=== PATIENT | male | born 1960 | race Caucasian/White ===

== ENCOUNTER 2017-07-11 06:49 | Emergency (ER) | payer BC ==
--- NOTE | 2017-07-11 06:53 | EDM.PDOC ---
ED HPI GENERAL MEDICAL PROBLEM - General Chief Complaint: Allergic Reaction Stated Complaint: [id number] ALLERGIC REACTION Time Seen by Provider: 07/11/17 06:52 Source of Information: Reports: Patient, RN, RN Notes Reviewed - History of Present Illness INITIAL COMMENTS - FREE TEXT/NARRATIVE: Pt presents to the ER with c/o developing a red, raised, itchy rash beginning on Saturday evening. He states his only known allergy is sulfa drugs. He states he started some OTC cough medicine on Saturday evening, and that was the last time it was taken. He states he did have shrimp over [place]. He states he began taking benadryl 50mg on Saturday evening and has been taking it morning and night since Saturday. He states this morning his lips began to swell. He denies tongue swelling or trouble breathing. 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: Reports: Other Medication(s) (Benadryl) - Related Data Allergies Allergy/AdvReac Type Severity Reaction Status Date / Time Sulfa (Sulfonamide Allergy Rash Verified 07/11/17 06:57 Antibiotics) Home Meds: Home Meds Lutein 20 mg PO ASDIRECTED 03/11/16 [History] Mirabegron [Myrbetriq] 50 mg PO DAILY 07/11/17 [History] Terazosin [Hytrin] 5 mg PO BEDTIME 07/11/17 [History] Past Medical History - Past Health History Medical/Surgical History: Denies Medical/Surgical History Musculoskeletal History: Reports: Fracture - Infectious Disease History Infectious Disease History: Reports: Chicken Pox, Measles Social & Family History - Family History Family Medical History: Noncontributory - Tobacco Use Smoking Status *Q: Never Smoker - Recreational Drug Use Recreational Drug Use: No ED ROS ALLERGIC REACTION - Review of Systems Review Of Systems: ROS reveals no pertinent complaints other than HPI. ED EXAM GENERAL NO PERIP PULSE - Physical Exam Exam: See Below Exam Limited By: No Limitations General Appearance: Alert, WD/WN, No Apparent Distress Eye Exam: Bilateral Eye: EOMI, Normal Inspection Ears: Normal External Exam, Normal Canal, Hearing Grossly Normal, Normal TMs Nose: Normal Inspection, Normal Mucosa, No Blood Throat/Mouth: Normal Teeth, Normal Gums, Normal Oropharynx, Normal Voice, No Airway Compromise. No: Normal Lips (upper and lower lip swelling) Head: Atraumatic, Normocephalic Neck: Normal Inspection, Supple, Non-Tender, Full Range of Motion Respiratory/Chest: No Respiratory Distress, Lungs Clear, Normal Breath Sounds, No Accessory Muscle Use, Chest Non-Tender Cardiovascular: Normal Peripheral Pulses, Regular Rate, Rhythm, No Edema, No Gallop, No JVD, No Murmur, No Rub GI/Abdominal: Normal Bowel Sounds, Soft, Non-Tender, No Organomegaly, No Distention, No Abnormal Bruit, No Mass (Male) Exam: Deferred Rectal (Males) Exam: Deferred Back Exam: Normal Inspection, Full Range of Motion, NT Extremities: Normal Inspection, Normal Range of Motion, Non-Tender, Normal Capillary Refill, No Pedal Edema Neurological: Alert, Oriented, CN II-XII Intact, Normal Cognition, Normal Gait, Normal Reflexes, No Motor/Sensory Deficits Psychiatric: Normal Affect, Normal Mood Skin Exam: Warm, Dry, Rash (Red, patchy, raised, generally located) Lymphatic: No Adenopathy Course - Vital Signs Last Recorded V/S: Last Vital Signs Temp 98.5 F 07/11/17 08:06 Pulse 84 07/11/17 08:06 Resp 16 07/11/17 08:06 BP 111/62 07/11/17 08:06 Pulse Ox 97 07/11/17 08:06 - Orders/Labs/Meds Meds: Medications Discontinued Medications Generic Name Dose Route Start Last Admin Trade Name Miriam PRN Reason Stop Dose Admin Diphenhydramine HCl 50 mg 07/11/17 07:10 07/11/17 07:22 Benadryl IVPUSH 07/11/17 07:11 50 mg ONETIME ONE Administration Epinephrine HCl 0.3 mg 07/11/17 08:22 07/11/17 08:31 Adrenalin IM 07/11/17 08:23 0.3 mg ONETIME ONE Administration Famotidine 20 mg 07/11/17 07:09 07/11/17 07:23 Pepcid IVPUSH 07/11/17 07:10 20 mg ONETIME ONE Administration Sodium Chloride 1,000 mls @ 999 mls/hr 07/11/17 07:08 12/28/17 07:19 Normal Saline IV 07/11/17 08:08 999 mls/hr .BOLUS ONE Administration Methylprednisolone Sodium Succinate 125 mg 07/11/17 07:08 07/11/17 07:20 Solu-Medrol IVPUSH 07/11/17 07:09 125 mg ONETIME ONE Administration Departure - Departure Time of Disposition: 09:08 Disposition: Home, Self-Care 01 Condition: Fair Clinical Impression: Urticaria Allergic reaction Qualifiers: Encounter type: initial encounter Qualified Code(s): T78.40XA - Allergy, unspecified, initial encounter Angioedema of lips Qualifiers: Encounter type: initial encounter Qualified Code(s): T78.3XXA - Angioneurotic edema, initial encounter - Discharge Information Instructions: Anaphylactic Reaction, Allergies Referrals: PCP,None [Primary Care Provider] - Forms: ED Department Discharge Additional Instructions: Continue taking benadryl as directed RX: Medrol Dose Pack Return to the ER with any worsening of symptoms. Follow up with your primary care facility tomorrow.
[2017-07-11] MEDS ORDERED: methylPREDNISolone Sodium Succinate 125 MG/2 ML SDV IVPUSH ONE (07:08)
[2017-07-11] MEDS ORDERED: Sodium Chloride 0.9% 1,000 ML IV ONE (07:08)
[2017-07-11] MEDS ORDERED: Famotidine 20 MG/2 ML SDV IVPUSH ONE (07:09)
[2017-07-11] MEDS ORDERED: diphenhydrAMINE 50 MG/ML SDV IVPUSH ONE (07:10)
[2017-07-11 08:07] VITALS: BP 111/62
[2017-07-11] MEDS ORDERED: EPINEPHrine 1 MG/ML SDV IM ONE (08:22)
== END 2017-07-11 09:20 | disposition home or self-care (01) ==
LOC: DL.ED 06:49
DX: T78.3XXA Angioneurotic edema, initial encounter (principal); Z79.899 Other long term (current) drug therapy; Z88.2 Allergy status to sulfonamides
CPT/HCPCS: 96361; 96372; 96374; 96375; 99283; J0171; J1200; J2930; J7030; S0028

== ENCOUNTER 2019-01-04 10:38 | Observation (INO) | payer BC ==
[2019-01-04] MEDS ORDERED: Sodium Chloride 0.9% 10 ML Syringe FLUSH PRN ×2 (11:52→12:15)
[2019-01-04] MEDS ORDERED: Iopamidol 612 MG/ML 100 ML Bottle IVPUSH ONE (11:54)
[2019-01-04] MEDS ORDERED: Sodium Chloride 0.9% 1,000 ML IV ONE (12:15)
[2019-01-04 12:17] LABS: ANION GAP 13.2; CHLORIDE,CL 104 mmol/L (101-111); SODIUM,NA 139 mmol/L (135-145)
[2019-01-04] MEDS ORDERED: Lactated Ringers 1,000 ML IV ONE (12:29)
[2019-01-04] MEDS ORDERED: HYDROmorphone 1 MG/ML Syringe IVPUSH ONE (12:47)
[2019-01-04] MEDS ORDERED: Iopamidol 612 MG/ML 75 ML Bottle IVPUSH ONE (13:27)
[2019-01-04] MEDS ORDERED: Iopamidol 612 MG/ML 50 ML SDV IVPUSH ONE (13:28)
[2019-01-04] MEDS ORDERED: Acetaminophen/HYDROcodone 325-10 MG Tab PO PRN (14:04)
[2019-01-04] MEDS ORDERED: Zolpidem 5 MG Tab PO PRN (14:04)
[2019-01-04] MEDS ORDERED: Ondansetron 4 MG Tab.DIS PO PRN (14:04)
[2019-01-04] MEDS ORDERED: Docusate Sodium 100 MG Cap PO PRN (14:04)
[2019-01-04] MEDS ORDERED: Acetaminophen 325 MG Tab PO PRN (14:04)
[2019-01-04] MEDS ORDERED: Morphine 2 MG/ML Syringe IVPUSH PRN (14:04)
[2019-01-04] MEDS ORDERED: Ibuprofen 400 MG Tab PO SCH (14:15)
[2019-01-04] MEDS: Ibuprofen 400 MG Tab PO SCH ×2 (14:47→21:07)
[2019-01-04] MEDS: Lidocaine 5% 700 MG Patch TOP SCH (14:49)
--- NOTE | 2019-01-04 15:54 | PCM.HP ---
H&P History of Present Illness - General Date of Service: 01/04/19 Admit Problem/Dx: Admission Diagnosis/Problem Admission Diagnosis/Problem Syncope Source of Information: Patient - History of Present Illness Initial Comments - Free Text/Narative: fell from ladder, 4-5 feet. Landed on the ladder, hitting r. chest. No head trauma, no loc. overnight was taking alleve. Pain moderate, sharp sharp The patient came into the emergency room x-ray was ordered. The patient had syncopal episodes while he was trying to obtain x-ray. He did not feel chest pain, felt lightheaded and palpitation. He was also in considerable pain. 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 He had no significant chest pain, shortness of breath, fever or chills, abdominal pain lately. Right Pain Score (Numeric/FACES): 3 - Related Data Allergies/Adverse Reactions: Allergies Allergy/AdvReac Type Severity Reaction Status Date / Time mirabegron [From Myrbetriq] Allergy Rash Verified 01/04/19 14:44 Sulfa (Sulfonamide Allergy Rash Verified 01/04/19 14:44 Antibiotics) Home Medications: Home Meds Lutein 20 mg PO ASDIRECTED 03/11/16 [History] Terazosin [Hytrin] 5 mg PO BEDTIME 07/11/17 [History] Oxybutynin [Oxybutynin ER] 5 mg PO BID 01/04/19 [History] Past Medical History - Past Health History Medical/Surgical History: Denies Medical/Surgical History HEENT History: Reports: None Cardiovascular History: Reports: None Respiratory History: Reports: Sleep Apnea Gastrointestinal History: Reports: None Genitourinary History: Reports: None Musculoskeletal History: Reports: Fracture Other Musculoskeletal History: joseph, ribs Neurological History: Reports: Concussion, Head Trauma Psychiatric History: Reports: None Endocrine/Metabolic History: Reports: Obesity/BMI 30+ Hematologic History: Reports: None Immunologic History: Reports: None Oncologic (Cancer) History: Reports: None Dermatologic History: Reports: None - Infectious Disease History Infectious Disease History: Reports: Chicken Pox, Measles - Past Surgical History Head Surgeries/Procedures: Reports: None GI Surgical History: Reports: Colonoscopy Social & Family History - Family History Family Medical History: Noncontributory - Tobacco Use Smoking Status *Q: Never Smoker Second Hand Smoke Exposure: No - Caffeine Use Caffeine Use: Reports: Coffee, Soda - Alcohol Use Days Per Week of Alcohol Use: 3 Number of Drinks Per Day: 2 Total Drinks Per Week: 6 - Recreational Drug Use Recreational Drug Use: No H&P Review of Systems - Review of Systems: Review Of Systems: See Below General: Denies: Fever, Chills Pulmonary: Denies: Shortness of Breath, Wheezing Cardiovascular: Reports: Chest Pain (Right posterior, worse with deep breath, movements, since the falling episode). Denies: Edema Gastrointestinal: Denies: Abdominal Pain Psychiatric: Denies: Confusion Exam - Exam Exam: See Below - Vital Signs Vital Signs: Last Vital Signs Temp 36.7 C 01/04/19 14:10 Pulse 52 L 01/04/19 14:10 Resp 20 01/04/19 14:10 BP 118/71 01/04/19 14:10 Pulse Ox 96 01/04/19 14:10 Weight: 95.617 kg - Exam General: Alert, Oriented Neck: Supple Lungs: Clear to Auscultation, Normal Respiratory Effort Cardiovascular: Regular Rate, Regular Rhythm GI/Abdominal Exam: Normal Bowel Sounds, Soft, Non-Tender Back Exam: Normal Inspection Extremities: No Pedal Edema - Patient Data Lab Results Last 24 hrs: Laboratory Results - last 24 hr 01/04/19 01/04/19 01/04/19 Range/Units 11:49 11:50 11:50 WBC 15.6 H (5.0-10.0) 10^3/uL RBC 5.26 (4.6-6.2) 10^6/uL Hgb 16.4 D (14.0-18.0) g/dL Hct 47.9 (40.0-54.0) % MCV 91.1 (80-100) fL MCH 31.2 (27.0-34.0) pg MCHC 34.2 (33.0-35.0) g/dL Plt Count 186 (150-450) 10^3/uL Neut % (Auto) 67.3 (42.2-75.2) % Lymph % (Auto) 24.9 (20.5-50.1) % [place] % (Auto) 7.1 (2-8) % Eos % (Auto) 0.5 L (1.0-3.0) % Baso % (Auto) 0.2 (0.0-1.0) % PT 9.7 (9.0-12.0) SEC INR 0.9 (0.9-1.2) Sodium (135-145) mmol/L Potassium (3.6-5.0) mmol/L Chloride (101-111) mmol/L Carbon Dioxide (21.0-31.0) mmol/L Anion Gap BUN (7-18) mg/dL Creatinine (0.6-1.3) mg/dL Est Cr Clr Drug Dosing mL/min Estimated GFR (MDRD) BUN/Creatinine Ratio Glucose (74-105) mg/dL POC Glucose 120 H (70-105) mg/dl Calcium (8.4-10.2) mg/dl Total Bilirubin (0.2-1.0) mg/dL AST (10-42) IU/L ALT (10-60) IU/L Alkaline Phosphatase (42-121) IU/L Troponin I (0.00-0.02) ng/ml Total Protein (6.7-8.2) g/dl Albumin (3.2-5.5) g/dl Globulin Albumin/Globulin Ratio Amylase (28-100) U/L Lipase (22-51) U/L 01/04/19 01/04/19 Range/Units 11:50 11:50 WBC (5.0-10.0) 10^3/uL RBC (4.6-6.2) 10^6/uL Hgb (14.0-18.0) g/dL Hct (40.0-54.0) % MCV (80-100) fL MCH (27.0-34.0) pg MCHC (33.0-35.0) g/dL Plt Count (150-450) 10^3/uL Neut % (Auto) (42.2-75.2) % Lymph % (Auto) (20.5-50.1) % [place] % (Auto) (2-8) % Eos % (Auto) (1.0-3.0) % Baso % (Auto) (0.0-1.0) % PT (9.0-12.0) SEC INR (0.9-1.2) Sodium 139 (135-145) mmol/L Potassium 4.2 (3.6-5.0) mmol/L Chloride 104 (101-111) mmol/L Carbon Dioxide 26.0 (21.0-31.0) mmol/L Anion Gap 13.2 BUN 18 (7-18) mg/dL Creatinine 1.0 (0.6-1.3) mg/dL Est Cr Clr Drug Dosing 79.54 mL/min Estimated GFR (MDRD) > 60 BUN/Creatinine Ratio 18.00 Glucose 115 H (74-105) mg/dL POC Glucose (70-105) mg/dl Calcium 9.6 (8.4-10.2) mg/dl Total Bilirubin 2.2 H (0.2-1.0) mg/dL AST 24 (10-42) IU/L ALT 15 (10-60) IU/L Alkaline Phosphatase 63 (42-121) IU/L Troponin I < 0.02 (0.00-0.02) ng/ml Total Protein 7.1 (6.7-8.2) g/dl Albumin 4.1 (3.2-5.5) g/dl Globulin 3.0 Albumin/Globulin Ratio 1.37 Amylase 72 (28-100) U/L Lipase 33 (22-51) U/L Result Diagrams: 01/04/19 11:50 01/04/19 11:50 - Problem List (1) Rib fracture SNOMED Code(s): 61651469 ICD Code: S22.39XA - FRACTURE OF ONE RIB, UNSP SIDE, INIT FOR CLOS FX Status: Acute Current Visit: Yes (2) Syncopal episodes SNOMED Code(s): 590141079 ICD Code: R55 - SYNCOPE AND COLLAPSE Status: Acute Current Visit: Yes Problem List Initiated/Reviewed/Updated: Yes Orders Last 24hrs: Active Orders 24 hr Category Date Time Status Patient Status [ADT] Routine ADT 01/04/19 14:04 Active Antiembolic Devices [RC] , Care 01/04/19 14:05 Active Oxygen Therapy [RC] PRN Care 01/04/19 14:04 Active Telemetry Monitoring [Cardiac Monitoring] [RC] 08,20 Care 01/04/19 14:01 Active Up With Assistance [RC] ASDIRECTED Care 01/04/19 14:04 Active VTE/DVT Education [RC] , Care 01/04/19 14:04 Active Vital Signs [RC] Q4H Care 01/04/19 14:04 Active Regular Diet [DIET] Diet 01/04/19 Dinner Active Hip Min 1V w Pelvis Rt [CR] Stat Exams 01/04/19 11:29 Ordered BASIC METABOLIC PANEL,BMP [CHEM] AM Lab 01/05/19 05:15 Ordered CBC WITH AUTO DIFF [HEME] AM Lab 01/05/19 05:15 Ordered TROPONIN I [CHEM] Timed Lab 01/04/19 18:00 Ordered UA RFX OPAL AND CULT IF INDIC [URIN] Stat Lab 01/04/19 11:52 Ordered Acetaminophen [Tylenol] Med 01/04/19 14:04 Active 650 mg PO Q4H PRN Acetaminophen/HYDROcodone [[place] 325-10 MG] Med 01/04/19 14:04 Active 1 tab PO Q4H PRN Docusate Sodium [Colace] Med 01/04/19 14:04 Active 100 mg PO BID PRN Ibuprofen [Motrin] Med 01/04/19 15:00 Active 400 mg PO Q6H Lidocaine 5% [Lidoderm 5%] Med 01/04/19 14:15 Active 700 mg TOP DAILY Morphine Med 01/04/19 14:04 Active 1 mg IVPUSH Q2H PRN Ondansetron [Zofran ODT] Med 01/04/19 14:04 Active 4 mg PO Q6H PRN Oxybutynin [Oxybutynin ER] Med 01/04/19 21:00 Active 5 mg PO BID Remove Patch Med 01/04/19 21:00 Active 1 ea TRDERM BEDTIME Sodium Chloride 0.9% [Saline Flush] Med 01/04/19 11:52 Active 10 ml FLUSH ASDIRECTED PRN Sodium Chloride 0.9% [Saline Flush] Med 01/04/19 12:15 Active 10 ml FLUSH ASDIRECTED PRN Terazosin [Hytrin] Med 01/04/19 21:00 Active 5 mg PO BEDTIME Zolpidem [Ambien] Med 01/04/19 14:04 Active 5 mg PO BEDTIME PRN Antiembolic Hose [OM.PC] Per Unit Routine Oth 01/04/19 14:05 Ordered Peripheral IV Insertion Adult [OM.PC] Stat Oth 01/04/19 11:52 Ordered Peripheral IV Insertion Adult [OM.PC] Stat Oth 01/04/19 12:15 Ordered Resuscitation Status Routine Resus Stat 01/04/19 14:04 Ordered Medication Orders Acetaminophen (Tylenol) 650 mg PO Q4H PRN PRN Reason: Pain (Mild 1-3)/fever Hydrocodone Bitart/Acetaminophen ([place] 325-10 Mg) 1 tab PO Q4H PRN PRN Reason: Pain (moderate 4-6) Docusate Sodium (Colace) 100 mg PO BID PRN PRN Reason: Constipation Ibuprofen (Motrin) 400 mg PO Q6H [facility] Last Admin: 01/04/19 14:47 Dose: 400 mg Lidocaine (Lidoderm 5%) 700 mg TOP DAILY [facility] Last Admin: 01/04/19 14:49 Dose: 700 mg Miscellaneous Information (Remove Patch) 1 ea TRDERM BEDTIME [facility] Morphine Sulfate (Morphine) 1 mg IVPUSH Q2H PRN PRN Reason: Pain (severe 7-10) Ondansetron HCl (Zofran Odt) 4 mg PO Q6H PRN PRN Reason: nausea, able to take PO Oxybutynin Chloride (Oxybutynin Er) 5 mg PO BID [facility] Sodium Chloride (Saline Flush) 10 ml FLUSH ASDIRECTED PRN PRN Reason: Keep Vein Open Last Admin: 01/04/19 12:26 Dose: 10 ml Sodium Chloride (Saline Flush) 10 ml FLUSH ASDIRECTED PRN PRN Reason: Keep Vein Open Last Admin: 01/04/19 12:26 Dose: 10 ml Terazosin HCl (Hytrin) 5 mg PO BEDTIME SARAHI Zolpidem Tartrate (Ambien) 5 mg PO BEDTIME PRN PRN Reason: Sleep Assessment/Plan Comment:: Status post fall No apparent head, abdominal injury. Right Ninth and 10th rib fracture noted Will treat with Lidoderm patch, scheduled Motrin, Tylenol when necessary For moderate pain use hydrocodone when necessary, for severe pain use morphine when necessary Syncopal episodes Likely due to pain, vasovagal episode We'll monitor on telemetry, repeat troponin, follow vital signs Leukocytosis Likely due to pain, fracture No apparent infection We'll monitor Hold antibiotics now
[2019-01-04] MEDS: OXYBUTYNIN 10 MG PO SCH (20:44)
[2019-01-04] MEDS ORDERED: Remove Patch*LIDODERM TRDERM SCH (21:00)
[2019-01-04] MEDS ORDERED: Oxybutynin 5 MG Tab.ER PO SCH (21:00)
[2019-01-04] MEDS ORDERED: TERAZOSIN 5 MG PO SCH (21:00)
[2019-01-05] MEDS: Ibuprofen 400 MG Tab PO SCH ×2 (03:24→08:39)
[2019-01-05 06:59] LABS: ANION GAP 10.5; CHLORIDE,CL 107 mmol/L (101-111); SODIUM,NA 137 mmol/L (135-145)
[2019-01-05] MEDS: Lidocaine 5% 700 MG Patch TOP SCH (08:38)
[2019-01-05 08:46] VITALS: BP 119/78
--- NOTE | 2019-01-05 08:53 | EDM.PDOC ---
Scribed by Kandace Ansari 01/04/19 [id number] for Ophelia Schrader NP ED HPI GENERAL MEDICAL PROBLEM - General Chief Complaint: Upper Extremity Injury/Pain Stated Complaint: RIB PAIN Time Seen by Provider: 01/04/19 11:20 Source of Information: Reports: Patient, RN, RN Notes Reviewed History Limitations: Reports: No Limitations - History of Present Illness INITIAL COMMENTS - FREE TEXT/NARRATIVE: Patient presents to ER with complaint that he landed on a ladder (4-5 feet off ground) on 01/03/19 at 1500. There was no loss of consciousness. He did not hit his head. He has pain to right lower back. Pain is 2/10 when sitting and increases with movement. No abdominal pain or shortness of breath. Cold packs help as well Aleve. 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: Cold Therapy Right Pain Score (Numeric/FACES): 3 - Related Data Allergies Allergy/AdvReac Type Severity Reaction Status Date / Time mirabegron [From Myrbetriq] Allergy Rash Verified 01/04/19 14:44 Sulfa (Sulfonamide Allergy Rash Verified 01/04/19 14:44 Antibiotics) Home Meds: Home Meds Lutein 20 mg PO ASDIRECTED 03/11/16 [History] Terazosin [Hytrin] 5 mg PO DAILY 07/11/17 [History] Oxybutynin [Oxybutynin ER] 10 mg PO BID 01/04/19 [History] Past Medical History - Past Health History Medical/Surgical History: Denies Medical/Surgical History HEENT History: Reports: None Cardiovascular History: Reports: None Respiratory History: Reports: None Gastrointestinal History: Reports: None Genitourinary History: Reports: None Musculoskeletal History: Reports: Fracture Neurological History: Reports: None Psychiatric History: Reports: None Endocrine/Metabolic History: Reports: None Hematologic History: Reports: None Immunologic History: Reports: None Oncologic (Cancer) History: Reports: None Dermatologic History: Reports: None - Infectious Disease History Infectious Disease History: Reports: Chicken Pox, Measles - Past Surgical History Head Surgeries/Procedures: Reports: None Social & Family History - Family History Family Medical History: Noncontributory - Tobacco Use Smoking Status *Q: Never Smoker Second Hand Smoke Exposure: No - Caffeine Use Caffeine Use: Reports: Coffee, Soda - Recreational Drug Use Recreational Drug Use: No Review of Systems - Review of Systems Review Of Systems: ROS reveals no pertinent complaints other than HPI. ED EXAM, GENERAL - Physical Exam Exam: See Below Exam Limited By: No Limitations General Appearance: Alert, WD/WN, No Apparent Distress Eye Exam: Bilateral Eye: EOMI, Normal Inspection, PERRL Ears: Normal External Exam, Normal Canal, Hearing Grossly Normal, Normal TMs Nose: Normal Inspection, Normal Mucosa, No Blood Throat/Mouth: Normal Inspection, Normal Lips, Normal Teeth, Normal Gums, Normal Oropharynx, Normal Voice, No Airway Compromise Head: Atraumatic, Normocephalic Neck: Normal Inspection, Supple, Non-Tender, Full Range of Motion Respiratory/Chest: No Respiratory Distress, Lungs Clear, Normal Breath Sounds, No Accessory Muscle Use, Chest Non-Tender Cardiovascular: Normal Peripheral Pulses, Regular Rate, Rhythm, No Edema, No Gallop, No JVD, No Murmur, No Rub GI/Abdominal: Normal Bowel Sounds, Soft, Non-Tender, No Organomegaly, No Distention, No Abnormal Bruit, No Mass (Male) Exam: Deferred Rectal (Males) Exam: Deferred Back Exam: Other (pain with movement and palpation to right lower back) Extremities: Normal Inspection, Normal Range of Motion, Non-Tender, Normal Capillary Refill, No Pedal Edema Neurological: Alert, Oriented, CN II-XII Intact, Normal Cognition, Normal Gait, Normal Reflexes, No Motor/Sensory Deficits Psychiatric: Normal Affect, Normal Mood Skin Exam: Other (petechiae posterior right lower back and hip. ) Lymphatic: No Adenopathy EKG INTERPRETATION EKG Date: 01/04/19 Time: 12:12 Rhythm: Other (sinus bradycardia) Rate (Beats/Min): 48 [place]: Normal P-Wave: Present QRS: Other (nonspecific intraventricular conduction delay) ST-T: Normal QT: Normal Course - Vital Signs Last Recorded V/S: Last Vital Signs Temp 98.5 F 01/04/19 19:14 Pulse 65 01/04/19 19:14 Resp 16 01/04/19 19:14 BP 119/78 01/05/19 08:36 Pulse Ox 94 L 01/04/19 19:14 - Orders/Labs/Meds Orders: Active Orders 24 hr Category Date Time Status Telemetry Monitoring [Cardiac Monitoring] [RC] 08,20 Care 01/04/19 14:01 Active Lidocaine 5% [Lidoderm 5%] Med 01/04/19 14:15 Active 700 mg TOP DAILY Sodium Chloride 0.9% [Saline Flush] Med 01/04/19 12:15 Active 10 ml FLUSH ASDIRECTED PRN Peripheral IV Insertion Adult [OM.PC] Stat [facility] 01/04/19 11:52 Ordered Peripheral IV Insertion Adult [OM.PC] [facility] 01/04/19 12:15 Ordered Medication Orders Acetaminophen (Tylenol) 650 mg PO Q4H PRN PRN Reason: Pain (Mild 1-3)/fever Hydrocodone Bitart/Acetaminophen ([place] 325-10 Mg) 1 tab PO Q4H PRN PRN Reason: Pain (moderate 4-6) Docusate Sodium (Colace) 100 mg PO BID PRN PRN Reason: Constipation Ibuprofen (Motrin) 400 mg PO Q6H [facility] Last Admin: 01/05/19 08:39 Dose: 400 mg Admin: 01/05/19 03:24 Dose: Not Given Admin: 01/04/19 21:07 Dose: 400 mg Admin: 01/04/19 14:47 Dose: 400 mg Lidocaine (Lidoderm 5%) 700 mg TOP DAILY [facility] Last Admin: 01/05/19 08:38 Dose: 700 mg Admin: 01/04/19 14:49 Dose: 700 mg Miscellaneous Information (Remove Patch) 1 ea TRDERM BEDTIME [facility] Last Admin: 01/04/19 21:08 Dose: Morphine Sulfate (Morphine) 1 mg IVPUSH Q2H PRN PRN Reason: Pain (severe 7-10) Oxybutynin Er 10 Mg (Own Med) 0 each PO BID [facility] Last Admin: 01/04/19 20:44 Dose: 1 each Ondansetron HCl (Zofran Odt) 4 mg PO Q6H PRN PRN Reason: nausea, able to take PO Sodium Chloride (Saline Flush) 10 ml FLUSH ASDIRECTED PRN PRN Reason: Keep Vein Open Last Admin: 01/04/19 12:26 Dose: 10 ml Terazosin HCl (Hytrin) 5 mg PO DAILY [facility] Last Admin: 01/05/19 08:36 Dose: 5 mg Zolpidem Tartrate (Ambien) 5 mg PO BEDTIME PRN PRN Reason: Sleep Labs: Laboratory Tests 01/04/19 01/04/19 01/04/19 Range/Units 11:49 11:50 11:50 WBC 15.6 H (5.0-10.0) 10^3/uL RBC 5.26 (4.6-6.2) 10^6/uL Hgb 16.4 D (14.0-18.0) g/dL Hct 47.9 (40.0-54.0) % MCV 91.1 (80-100) fL MCH 31.2 (27.0-34.0) pg MCHC 34.2 (33.0-35.0) g/dL Plt Count 186 (150-450) 10^3/uL Neut % (Auto) 67.3 (42.2-75.2) % Lymph % (Auto) 24.9 (20.5-50.1) % [place] % (Auto) 7.1 (2-8) % Eos % (Auto) 0.5 L (1.0-3.0) % Baso % (Auto) 0.2 (0.0-1.0) % PT 9.7 (9.0-12.0) SEC INR 0.9 (0.9-1.2) Sodium (135-145) mmol/L Potassium (3.6-5.0) mmol/L Chloride (101-111) mmol/L Carbon Dioxide (21.0-31.0) mmol/L Anion Gap BUN (7-18) mg/dL Creatinine (0.6-1.3) mg/dL Est Cr Clr Drug Dosing mL/min Estimated GFR (MDRD) BUN/Creatinine Ratio Glucose (74-105) mg/dL POC Glucose 120 H (70-105) mg/dl Calcium (8.4-10.2) mg/dl Total Bilirubin (0.2-1.0) mg/dL AST (10-42) IU/L ALT (10-60) IU/L Alkaline Phosphatase (42-121) IU/L Troponin I (0.00-0.02) ng/ml Total Protein (6.7-8.2) g/dl Albumin (3.2-5.5) g/dl Globulin Albumin/Globulin Ratio Amylase (28-100) U/L Lipase (22-51) U/L 01/04/19 01/04/19 Range/Units 11:50 11:50 WBC (5.0-10.0) 10^3/uL RBC (4.6-6.2) 10^6/uL Hgb (14.0-18.0) g/dL Hct (40.0-54.0) % MCV (80-100) fL MCH (27.0-34.0) pg MCHC (33.0-35.0) g/dL Plt Count (150-450) 10^3/uL Neut % (Auto) (42.2-75.2) % Lymph % (Auto) (20.5-50.1) % [place] % (Auto) (2-8) % Eos % (Auto) (1.0-3.0) % Baso % (Auto) (0.0-1.0) % PT (9.0-12.0) SEC INR (0.9-1.2) Sodium 139 (135-145) mmol/L Potassium 4.2 (3.6-5.0) mmol/L Chloride 104 (101-111) mmol/L Carbon Dioxide 26.0 (21.0-31.0) mmol/L Anion Gap 13.2 BUN 18 (7-18) mg/dL Creatinine 1.0 (0.6-1.3) mg/dL Est Cr Clr Drug Dosing 79.54 mL/min Estimated GFR (MDRD) > 60 BUN/Creatinine Ratio 18.00 Glucose 115 H (74-105) mg/dL POC Glucose (70-105) mg/dl Calcium 9.6 (8.4-10.2) mg/dl Total Bilirubin 2.2 H (0.2-1.0) mg/dL AST 24 (10-42) IU/L ALT 15 (10-60) IU/L Alkaline Phosphatase 63 (42-121) IU/L Troponin I < 0.02 (0.00-0.02) ng/ml Total Protein 7.1 (6.7-8.2) g/dl Albumin 4.1 (3.2-5.5) g/dl Globulin 3.0 Albumin/Globulin Ratio 1.37 Amylase 72 (28-100) U/L Lipase 33 (22-51) U/L Meds: Medications Generic Name Dose Route Start Last Admin Trade Name Freq PRN Reason Stop Dose Admin Acetaminophen 650 mg 01/04/19 14:04 Tylenol PO Q4H PRN Pain (Mild 1-3)/fever Hydrocodone Bitart/Acetaminophen 1 tab 01/04/19 14:04 [place] 325-10 Mg PO Q4H PRN Pain (moderate 4-6) Docusate Sodium 100 mg 01/04/19 14:04 Colace PO BID PRN Constipation Ibuprofen 400 mg 01/04/19 15:00 01/05/19 08:39 Motrin PO 400 mg Q6H SARAHI Administration Lidocaine 700 mg 01/04/19 14:15 01/05/19 08:38 Lidoderm 5% TOP 700 mg DAILY SARAHI Administration Miscellaneous Information 1 ea 01/04/19 21:00 01/04/19 21:08 Remove Patch TRDERM Not Given BEDTIME SARAHI Morphine Sulfate 1 mg 01/04/19 14:04 Morphine IVPUSH Q2H PRN Pain (severe 7-10) Oxybutynin Er 10 Mg 0 each 01/04/19 21:00 01/04/19 20:44 Own Med PO 1 each BID SARAHI Administration Ondansetron HCl 4 mg 01/04/19 14:04 Zofran Odt PO Q6H PRN nausea, able to take PO Sodium Chloride 10 ml 01/04/19 12:15 01/04/19 12:26 Saline Flush FLUSH 10 ml ASDIRECTED PRN Administration Keep Vein Open Terazosin HCl 5 mg 01/05/19 09:00 01/05/19 08:36 Hytrin PO 5 mg DAILY SARAHI Administration Zolpidem Tartrate 5 mg 01/04/19 14:04 Ambien PO BEDTIME PRN Sleep Discontinued Medications Generic Name Dose Route Start Last Admin Trade Name Miriam PRN Reason Stop Dose Admin Hydromorphone HCl 1 mg 01/04/19 12:47 01/04/19 12:50 Dilaudid IVPUSH 01/04/19 12:48 1 mg ONETIME ONE Administration Sodium Chloride 1,000 mls @ 999 mls/hr 01/04/19 12:15 01/04/19 12:15 Normal Saline IV 01/04/19 13:15 999 mls/hr .BOLUS ONE Administration Lactated Ringer's 1,000 mls @ 999 mls/hr 01/04/19 12:29 01/04/19 11:55 Ringers, Lactated IV 01/04/19 13:29 999 mls/hr .BOLUS ONE Administration Ibuprofen 400 mg 01/04/19 14:15 Motrin PO Q6H SARAHI Iopamidol 125 ml 01/04/19 11:54 01/04/19 13:12 Isovue-300 (61%) IVPUSH 01/04/19 11:55 Not Given ONETIME ONE Iopamidol 75 ml 01/04/19 13:27 01/04/19 13:29 Isovue-300 (61%) IVPUSH 01/04/19 13:28 75 ml ONETIME ONE Administration Iopamidol 50 ml 01/04/19 13:28 01/04/19 13:29 Isovue-300 (61%) IVPUSH 01/04/19 13:29 50 ml ONETIME ONE Administration Oxybutynin Chloride 5 mg 01/04/19 21:00 Oxybutynin Er PO BID SARAHI Sodium Chloride 10 ml 01/04/19 11:52 01/04/19 12:26 Saline Flush FLUSH 10 ml ASDIRECTED PRN Administration Keep Vein Open Terazosin HCl 5 mg 01/04/19 21:00 01/04/19 21:08 Hytrin PO Not Given BEDTIME [facility] - Radiology Interpretation Free Text/Narrative:: Head CT: FINDINGS: Brain: No hemorrhage. Unremarkable white matter for the patient's age. No mass effect. No evolving territorial infarct. Ventricles: No ventriculomegaly. Bones/joints: No acute calvarial fractures seen. There is a chronic appearing nasal bone fracture. Sinuses: Visualized sinuses are unremarkable. No fluid levels. Mastoid air cells: Visualized mastoid air cells are well aerated. No mastoid effusion. Soft tissues: Unremarkable. IMPRESSION: No acute intracranial abnormality seen. Thank you for allowing us to participate in the care of your patient. Dictated and Authenticated by: Geraldine Olivas MD 01/04/2019 12:45 PM Central Time ([place] & [place]) Chest/Abdomen/Pelvis with contrast: Xray ribs: FINDINGS: Lungs: Platelike subsegmental atelectasis in the right lung base. No consolidation seen. Pleural space: No appreciable effusion or visible pneumothorax. Heart/Mediastinum: Unremarkable. No cardiomegaly. Bones/joints: Acute fracture of the right ninth posterior rib. 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 IMPRESSION: Acute fracture of the right ninth posterior rib. Thank you for allowing us to participate in the care of your patient. Dictated and Authenticated by: Geraldine Olivas MD 01/04/2019 12:50 PM Central Time ([place] & [place]) CT Chest/Abdomen/Pelvis: FINDINGS: Lungs: The lungs demonstrate dependent atelectasis. No consolidation. Pleural space: Trace bilateral pleural effusions. No pneumothorax. Heart: Upper normal heart size. No pericardial effusion. Aorta: Unremarkable. No aortic aneurysm. Lymph nodes: No pathologically enlarged lymph nodes. Bones/joints: There are acute fractures of the right 9th and 10th posterior ribs. Mild thoracic degenerative disc disease. 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 The degree of osseous demineralization is prominent for age. Soft tissues: Unremarkable. IMPRESSION: 1. There are acute fractures of the right 9th and 10th posterior ribs. 2. No pneumothorax. 3. Trace bilateral pleural effusions. FINDINGS: Liver: Normal. No mass. Gallbladder and bile ducts: There is a calcified gallstone. Pancreas: Normal. No ductal dilation. Spleen: Upper normal spleen size. There is a round, hypodense lesion in the spleen which is nonspecific but may represent a hemangioma measuring approximately 1.5 cm. No evidence of splenic parenchymal injury. Adrenals: Normal. No mass. Kidneys and ureters: The left kidney demonstrates cysts, the larger measuring 1.2 cm. The right kidney demonstrates multiple cysts, the largest measuring 1.8 cm. No evidence of renal parenchymal injury. No hydronephrosis. Stomach and bowel: Normal. No obstruction. No mucosal thickening. Appendix: A normal appendix is seen. Intraperitoneal space: Normal. No free air. No significant fluid collection. Vasculature: Normal. No abdominal aortic aneurysm or dissection. Lymph nodes: No pathologically enlarged lymph nodes. Bladder: The appearance of mild bladder wall thickening may be related to incomplete distention. Reproductive: Coarse calcification in the prostate. Bones/joints: No acute fracture seen. The degree of osseous demineralization is advanced for age. The AP spinal canal diameter is diminished on a developmental basis due to shortened pedicles. Cystic lesion noted in the right femoral head, probably degenerative. Soft tissues: There is a fat containing left inguinal hernia. IMPRESSION: No evidence of acute injury. Thank you for allowing us to participate in the care of your patient. Dictated and Authenticated by: Geraldine Olivas MD 01/04/2019 1:04 PM Central Time ([place] & [place]) See rad report - Re-Assessments/Exams Free Text/Narrative Re-Assessment/Exam: 01/04/19 13:27 Patient case discussed with Dr. Caba who agreed to admit the patient for observation. Departure - Departure Time of Disposition: 13:30 Disposition: Refer to Observation Condition: Fair Clinical Impression: Right flank pain Fall from ladder Qualifiers: Encounter type: initial encounter Qualified Code(s): W11.XXXA - Fall on and from ladder, initial encounter Episode of syncope Qualifiers: Syncope type: unspecified Qualified Code(s): R55 - Syncope and collapse - Discharge Information *PRESCRIPTION DRUG MONITORING PROGRAM REVIEWED*: No *COPY OF PRESCRIPTION DRUG MONITORING REPORT IN PATIENT CRISTOFER: No - My Orders Last 24 Hours: My Active Orders 01/04/19 11:52 Peripheral IV Insertion Adult [OM.PC] Stat 01/04/19 12:15 Sodium Chloride 0.9% [Saline Flush] 10 ml FLUSH ASDIRECTED PRN Peripheral IV Insertion Adult [OM.PC] Stat - Assessment/Plan Last 24 Hours: My Active Orders 01/04/19 11:52 Peripheral IV Insertion Adult [OM.PC] Stat 01/04/19 12:15 Sodium Chloride 0.9% [Saline Flush] 10 ml FLUSH ASDIRECTED PRN Peripheral IV Insertion Adult [OM.PC] Stat I have read and agree with the documentation that has been completed regarding this visit. By signing this record, I attest that the documentation was completed in my physical presence and is an accurate record of the encounter.
[2019-01-05] MEDS ORDERED: TERAZOSIN 5 MG PO SCH (09:00)
[2019-01-05] MEDS ORDERED: Potassium Chloride 10 MEQ Tab.ER PO ONE (09:01)
--- NOTE | 2019-01-05 09:17 | PCM.DCSUM1 ---
Discharge Summary - Hospital Course Free Text/Narrative:: Status post fall accidental from ladder No apparent head, abdominal injury. Right Ninth and 10th rib fracture noted Will treat with Lidoderm patch, scheduled Motrin, Tylenol when necessary For moderate to severe pain use hydrocodone when necessary, Syncopal episodes Likely due to pain, vasovagal episode no further complaints Leukocytosis Likely due to pain, fracture No apparent infection resolved Diagnosis: Stroke: No - Discharge Data Discharge Date: 01/05/19 Discharge Disposition: Home, Self-Care 01 Preliminary Cause of *Q: Cardiac Arrest Condition: Good - Discharge Diagnosis/Problem(s) (1) Rib fracture SNOMED Code(s): 68038764 ICD Code: S22.39XA - FRACTURE OF ONE RIB, UNSP SIDE, INIT FOR CLOS FX Status: Acute Current Visit: Yes (2) Syncopal episodes SNOMED Code(s): 779775570 ICD Code: R55 - SYNCOPE AND COLLAPSE Status: Acute Current Visit: Yes Qualifiers: Syncope type: unspecified Qualified Code(s): R55 - Syncope and collapse - Patient Instructions Diet: Usual Diet as Tolerated Activity: As Tolerated - Discharge Plan *PRESCRIPTION DRUG MONITORING PROGRAM REVIEWED*: Yes *COPY OF PRESCRIPTION DRUG MONITORING REPORT IN PATIENT CRISTOFER: Yes Prescriptions/Med Rec: Acetaminophen/HYDROcodone [Butler 325-10 MG] 1 tab PO Q4H PRN #7 tablet PRN Reason: Pain (Moderate 4-6) Lidocaine 5% [Lidoderm 5%] 700 mg TOP DAILY #5 patch Home Medications: Home Meds Lutein 20 mg PO ASDIRECTED 03/11/16 [History] Terazosin [Hytrin] 5 mg PO DAILY 07/11/17 [History] Oxybutynin [Oxybutynin ER] 10 mg PO BID 01/04/19 [History] Acetaminophen [Tylenol] 650 mg PO Q4H PRN tablet 01/05/19 [Rx] Acetaminophen/HYDROcodone [Butler 325-10 MG] 1 tab PO Q4H PRN #7 tablet 01/05/19 [Rx] Lidocaine 5% [Lidoderm 5%] 700 mg TOP DAILY #5 patch 01/05/19 [Rx] Terazosin [Hytrin] 5 mg PO DAILY cap 01/05/19 [Rx] - Discharge Summary/Plan Comment DC Time >30 min.: No - General Info Date of Service: 01/05/19 Functional Status: Reports: Tolerating Diet - Review of Systems General: Denies: Fever, Weakness Pulmonary: Denies: Shortness of Breath Cardiovascular: Reports: Chest Pain (r. posterior with movements) Gastrointestinal: Denies: Abdominal Pain Genitourinary: Denies: Dysuria Musculoskeletal: Denies: Neck Pain Neurological: Denies: Confusion, Headache, Seizure, Syncope, Weakness - Patient Data Vitals - Most Recent: Last Vital Signs Temp 36.8 C 01/05/19 08:00 Pulse 65 01/04/19 19:14 Resp 18 01/05/19 08:00 BP 119/78 01/05/19 08:36 Pulse Ox 95 01/05/19 08:00 Weight - Most Recent: 95.617 kg I&O - Last 24 hours: Intake & Output 01/04/19 01/05/19 01/05/19 22:59 06:59 14:59 Intake Total 860 Output Total 200 Balance 660 Lab Results - Last 24 hrs: Laboratory Results - last 24 hr 01/04/19 01/04/19 01/04/19 Range/Units 11:49 11:50 11:50 WBC 15.6 H (5.0-10.0) 10^3/uL RBC 5.26 (4.6-6.2) 10^6/uL Hgb 16.4 D (14.0-18.0) g/dL Hct 47.9 (40.0-54.0) % MCV 91.1 (80-100) fL MCH 31.2 (27.0-34.0) pg MCHC 34.2 (33.0-35.0) g/dL Plt Count 186 (150-450) 10^3/uL Neut % (Auto) 67.3 (42.2-75.2) % Lymph % (Auto) 24.9 (20.5-50.1) % Rich % (Auto) 7.1 (2-8) % Eos % (Auto) 0.5 L (1.0-3.0) % Baso % (Auto) 0.2 (0.0-1.0) % PT 9.7 (9.0-12.0) SEC INR 0.9 (0.9-1.2) Sodium (135-145) mmol/L Potassium (3.6-5.0) mmol/L Chloride (101-111) mmol/L Carbon Dioxide (21.0-31.0) mmol/L Anion Gap BUN (7-18) mg/dL Creatinine (0.6-1.3) mg/dL Est Cr Clr Drug Dosing mL/min Estimated GFR (MDRD) BUN/Creatinine Ratio Glucose (74-105) mg/dL POC Glucose 120 H (70-105) mg/dl Calcium (8.4-10.2) mg/dl Total Bilirubin (0.2-1.0) mg/dL AST (10-42) IU/L ALT (10-60) IU/L Alkaline Phosphatase (42-121) IU/L Troponin I (0.00-0.02) ng/ml Total Protein (6.7-8.2) g/dl Albumin (3.2-5.5) g/dl Globulin Albumin/Globulin Ratio Amylase (28-100) U/L Lipase (22-51) U/L Urine Color (YELLOW) Urine Appearance (CLEAR) Urine pH (5.0-9.0) Ur Specific Suches (1.005-1.030) Urine Protein (NEGATIVE) Urine Glucose (UA) (NEGATIVE) Urine Ketones (NEGATIVE) Urine Occult Blood (NEGATIVE) Urine Nitrite (NEGATIVE) Urine Bilirubin (NEGATIVE) Urine Urobilinogen (0.2-1.0) mg/dL Ur Leukocyte Esterase (NEGATIVE) Urine RBC /HPF Urine WBC (0-5/HPF) /HPF Ur Epithelial Cells (NOT SEEN) /HPF Amorphous Sediment (NOT SEEN) /HPF Urine Bacteria (0-FEW/HPF) /HPF Urine Mucus (NOT SEEN) /LPF 01/04/19 01/04/19 01/04/19 Range/Units 11:50 11:50 17:55 WBC (5.0-10.0) 10^3/uL RBC (4.6-6.2) 10^6/uL Hgb (14.0-18.0) g/dL Hct (40.0-54.0) % MCV (80-100) fL MCH (27.0-34.0) pg MCHC (33.0-35.0) g/dL Plt Count (150-450) 10^3/uL Neut % (Auto) (42.2-75.2) % Lymph % (Auto) (20.5-50.1) % Rich % (Auto) (2-8) % Eos % (Auto) (1.0-3.0) % Baso % (Auto) (0.0-1.0) % PT (9.0-12.0) SEC INR (0.9-1.2) Sodium 139 (135-145) mmol/L Potassium 4.2 (3.6-5.0) mmol/L Chloride 104 (101-111) mmol/L Carbon Dioxide 26.0 (21.0-31.0) mmol/L Anion Gap 13.2 BUN 18 (7-18) mg/dL Creatinine 1.0 (0.6-1.3) mg/dL Est Cr Clr Drug Dosing 79.54 mL/min Estimated GFR (MDRD) > 60 BUN/Creatinine Ratio 18.00 Glucose 115 H (74-105) mg/dL POC Glucose (70-105) mg/dl Calcium 9.6 (8.4-10.2) mg/dl Total Bilirubin 2.2 H (0.2-1.0) mg/dL AST 24 (10-42) IU/L ALT 15 (10-60) IU/L Alkaline Phosphatase 63 (42-121) IU/L Troponin I < 0.02 < 0.02 (0.00-0.02) ng/ml Total Protein 7.1 (6.7-8.2) g/dl Albumin 4.1 (3.2-5.5) g/dl Globulin 3.0 Albumin/Globulin Ratio 1.37 Amylase 72 (28-100) U/L Lipase 33 (22-51) U/L Urine Color (YELLOW) Urine Appearance (CLEAR) Urine pH (5.0-9.0) Ur Specific S[place]hes (1.005-1.030) Urine Protein (NEGATIVE) Urine Glucose (UA) (NEGATIVE) Urine Ketones (NEGATIVE) Urine Occult Blood (NEGATIVE) Urine Nitrite (NEGATIVE) Urine Bilirubin (NEGATIVE) Urine Urobilinogen (0.2-1.0) mg/dL Ur Leukocyte Esterase (NEGATIVE) Urine RBC /HPF Urine WBC (0-5/HPF) /HPF Ur Epithelial Cells (NOT SEEN) /HPF Amorphous Sediment (NOT SEEN) /HPF Urine Bacteria (0-FEW/HPF) /HPF Urine Mucus (NOT SEEN) /LPF 01/04/19 01/05/19 01/05/19 Range/Units 20:30 06:22 06:22 WBC 8.8 (5.0-10.0) 10^3/uL RBC 4.42 L (4.6-6.2) 10^6/uL Hgb 13.7 L D (14.0-18.0) g/dL Hct 40.7 (40.0-54.0) % MCV 92.1 (80-100) fL MCH 31.0 (27.0-34.0) pg MCHC 33.7 (33.0-35.0) g/dL Plt Count 131 L (150-450) 10^3/uL Neut % (Auto) 68.9 (42.2-75.2) % Lymph % (Auto) 22.3 (20.5-50.1) % Rich % (Auto) 7.7 (2-8) % Eos % (Auto) 0.9 L (1.0-3.0) % Baso % (Auto) 0.2 (0.0-1.0) % PT (9.0-12.0) SEC INR (0.9-1.2) Sodium 137 (135-145) mmol/L Potassium 3.5 L (3.6-5.0) mmol/L Chloride 107 (101-111) mmol/L Carbon Dioxide 23.0 (21.0-31.0) mmol/L Anion Gap 10.5 BUN 18 (7-18) mg/dL Creatinine 0.8 (0.6-1.3) mg/dL Est Cr Clr Drug Dosing 99.42 mL/min Estimated GFR (MDRD) > 60 BUN/Creatinine Ratio Glucose 115 H (74-105) mg/dL POC Glucose (70-105) mg/dl Calcium 9.0 (8.4-10.2) mg/dl Total Bilirubin (0.2-1.0) mg/dL AST (10-42) IU/L ALT (10-60) IU/L Alkaline Phosphatase (42-121) IU/L Troponin I (0.00-0.02) ng/ml Total Protein (6.7-8.2) g/dl Albumin (3.2-5.5) g/dl Globulin Albumin/Globulin Ratio Amylase (28-100) U/L Lipase (22-51) U/L Urine Color Yellow (YELLOW) Urine Appearance Clear (CLEAR) Urine pH 7.0 (5.0-9.0) Ur Specific [place] 1.015 (1.005-1.030) Urine Protein Trace H (NEGATIVE) Urine Glucose (UA) Negative (NEGATIVE) Urine Ketones Negative (NEGATIVE) Urine Occult Blood Trace-intact H (NEGATIVE) Urine Nitrite Negative (NEGATIVE) Urine Bilirubin Negative (NEGATIVE) Urine Urobilinogen 0.2 (0.2-1.0) mg/dL Ur Leukocyte Esterase Negative (NEGATIVE) Urine RBC 10-20 H /HPF Urine WBC 0-5 (0-5/HPF) /HPF Ur Epithelial Cells Occasional (NOT SEEN) /HPF Amorphous Sediment Moderate (NOT SEEN) /HPF Urine Bacteria Moderate H (0-FEW/HPF) /HPF Urine Mucus Moderate H (NOT SEEN) /LPF Med Orders - Current: Current Medications Acetaminophen (Tylenol) 650 mg PO Q4H PRN PRN Reason: Pain (Mild 1-3)/fever Hydrocodone Bitart/Acetaminophen (Butler 325-10 Mg) 1 tab PO Q4H PRN PRN Reason: Pain (moderate 4-6) Docusate Sodium (Colace) 100 mg PO BID PRN PRN Reason: Constipation Ibuprofen (Motrin) 400 mg PO Q6H [facility] Last Admin: 01/05/19 08:39 Dose: 400 mg Lidocaine (Lidoderm 5%) 700 mg TOP DAILY [facility] Last Admin: 01/05/19 08:38 Dose: 700 mg Miscellaneous Information (Remove Patch) 1 ea TRDERM BEDTIME [facility] Last Admin: 01/04/19 21:08 Dose: Not Given Morphine Sulfate (Morphine) 1 mg IVPUSH Q2H PRN PRN Reason: Pain (severe 7-10) Oxybutynin Er 10 Mg (Own Med) 0 each PO BID [facility] Last Admin: 01/04/19 20:44 Dose: 1 each Ondansetron HCl (Zofran Odt) 4 mg PO Q6H PRN PRN Reason: nausea, able to take PO Sodium Chloride (Saline Flush) 10 ml FLUSH ASDIRECTED PRN PRN Reason: Keep Vein Open Last Admin: 01/04/19 12:26 Dose: 10 ml Terazosin HCl (Hytrin) 5 mg PO DAILY [facility] Last Admin: 01/05/19 08:36 Dose: 5 mg Zolpidem Tartrate (Ambien) 5 mg PO BEDTIME PRN PRN Reason: Sleep Discontinued Medications Hydromorphone HCl (Dilaudid) 1 mg IVPUSH ONETIME ONE Stop: 01/04/19 12:48 Last Admin: 01/04/19 12:50 Dose: 1 mg Sodium Chloride (Normal Saline) 1,000 mls @ 999 mls/hr IV .BOLUS ONE Stop: 01/04/19 13:15 Last Admin: 01/04/19 12:15 Dose: 999 mls/hr Lactated Ringer's (Ringers, Lactated) 1,000 mls @ 999 mls/hr IV .BOLUS ONE Stop: 01/04/19 13:29 Last Admin: 01/04/19 11:55 Dose: 999 mls/hr Ibuprofen (Motrin) 400 mg PO Q6H [facility] Iopamidol (Isovue-300 (61%)) 125 ml IVPUSH ONETIME ONE Stop: 01/04/19 11:55 Last Admin: 01/04/19 13:12 Dose: Not Given Iopamidol (Isovue-300 (61%)) 75 ml IVPUSH ONETIME ONE Stop: 01/04/19 13:28 Last Admin: 01/04/19 13:29 Dose: 75 ml Iopamidol (Isovue-300 (61%)) 50 ml IVPUSH ONETIME ONE Stop: 01/04/19 13:29 Last Admin: 01/04/19 13:29 Dose: 50 ml Oxybutynin Chloride (Oxybutynin Er) 5 mg PO BID [facility] Potassium Chloride (Klor-Con 10) 20 meq PO ONETIME ONE Stop: 01/05/19 09:02 Sodium Chloride (Saline Flush) 10 ml FLUSH ASDIRECTED PRN PRN Reason: Keep Vein Open Last Admin: 01/04/19 12:26 Dose: 10 ml Terazosin HCl (Hytrin) 5 mg PO BEDTIME [facility] Last Admin: 01/04/19 21:08 Dose: Not Given - Exam General: Reports: Alert, Oriented Neck: Reports: Supple Lungs: Reports: Clear to Auscultation, Normal Respiratory Effort Extremities: No Pedal Edema
[2019-01-05] MEDS: OXYBUTYNIN 10 MG PO SCH (11:21)
== END 2019-01-05 11:05 | disposition home or self-care (01) ==
LOC: DL.ED 10:38 → UNDOADMOB 13:37 → DL.MS 13:37
PROVIDERS: ADMIT Internal Medicine; ATTEND Internal Medicine
DX: S22.41XA Multiple fractures of ribs, right side, initial encounter for closed fracture (principal); R55 Syncope and collapse; D72.829 Elevated white blood cell count, unspecified; W11.XXXA Fall on and from ladder, initial encounter; Y99.0 Civilian activity done for income or pay; Z88.2 Allergy status to sulfonamides; Z88.8 Allergy status to other drugs, medicaments and biological substances; Z79.899 Other long term (current) drug therapy
CPT/HCPCS: 36415; 70450; 71101; 71260; 74177; 80048; 80053; 81001; 82150; 82962; 83690; 84484; 85025; 85610; 93005; 96361; 96365; 96375; 99285; A9270; J1170; J7030; J7120; Q9967

== ENCOUNTER 2022-01-05 10:02 | Emergency (ER) | payer OTHER, BC ==
[2022-01-05] MEDS ORDERED: Ondansetron 4 MG/2 ML SDV IVPUSH ONE (10:22)
[2022-01-05] MEDS ORDERED: HYDROmorphone 0.5 MG/0.5 ML Syringe IVPUSH ONE (10:23)
[2022-01-05] MEDS ORDERED: Sodium Chloride 0.9% 10 ML Syringe FLUSH PRN (10:23)
[2022-01-05 11:21] VITALS: BP 126/72; PULSE 53
== END 2022-01-05 11:21 | disposition home or self-care (01) ==
LOC: DL.ED 10:02
DX: S42.021A Displaced fracture of shaft of right clavicle, initial encounter for closed fracture (principal); S50.01XA Contusion of right elbow, initial encounter; Z88.2 Allergy status to sulfonamides; Z88.8 Allergy status to other drugs, medicaments and biological substances; W22.09XA Striking against other stationary object, initial encounter
CPT/HCPCS: 73000; 96374; 96375; 99283; J1170; J2405; J3490